=== PATIENT | male | born 1970 | race Two or more races ===

== ENCOUNTER 2022-06-25 17:01 | Inpatient (IN) | payer BC, OTHER ==
[~2022-06-25] VITALS: Ht 170.2 cm; Wt 154.4 kg
[2022-06-25] MEDS ORDERED: ASPirin 81 mg TAB PO ONE (17:45)
[2022-06-25 18:05] LABS: Basophils # (auto) 0 10 ^3/uL (0-0.2); Basophils % (auto) 0.6 % (0.0-2.0); Eosinophils # (auto) 0.1 10 ^3/uL (0-0.8); Eosinophils % (auto) 1.5 % (0.0-7.0); Hematocrit 45.7 % (41.0-53.0); Hemoglobin 16.3 g/dL (13.5-17.5); Lymphocytes # (auto) 2.4 10 ^3/uL (0.4-5.4); Lymphocytes % (auto) 26.9 % (10.0-50.0); Mean Corpuscular Hemoglobin 29.5 pg (28.0-32.0); Mean Corpuscular Hgb Conc. 35.6 g/dL (32.0-36.0); Mean Corpuscular Volume 82.8 fL (80.0-100.0); Monocytes # (auto) 0.7 10 ^3/uL (0-1.3); Monocytes % (auto) 7.9 % (0.0-12.0); Neutrophils # (auto) 5.6 10 ^3/uL (1.6-8.6); Neutrophils % (auto) 63.1 % (37.0-80.0); Nucleated Red Blood Cells % 0.2 %; Red Blood Cells 5.53 10^6/uL (4.5-5.90); Red Cell Distribution Width 13.7 % (11.8-14.3); White Blood Cell 8.8 10^3/uL (4.4-10.8)
[2022-06-25 18:19] LABS: INR 1.13 (0.9-1.15); Partial Thromboplastin Time 27.1 sec (24.6-33.4)
[2022-06-25 18:23] LABS: Albumin 4.2 g/dL (3.4-5.0); Magnesium 2.1 mg/dL (1.6-2.6); Potassium 3.8 mmol/L (3.5-5.1)
[2022-06-25 18:27] LABS: BUN/Creatinine Ratio 31.5; Bilirubin, Total 1.8 mg/dL (0.2-1.0); Total Protein 6.5 g/dL (6.4-8.2)
[2022-06-25] MEDS ORDERED: IOHEXOL 350 MG/ML 100ML IJ ONE (19:21)
[2022-06-25] MEDS ORDERED: TEMAZEPAM 15 MG CAP PO PRN (20:45)
[2022-06-25] MEDS ORDERED: MORPHINE SULFATE INJ 2 MG/ml SYRG IV PRN (20:45)
[2022-06-25] MEDS ORDERED: NITROGLYCERIN 0.4 MG SL TAB SL PRN (20:45)
[2022-06-25] MEDS ORDERED: ONDANSETRON HCL 4 MG/2 ML VIAL IV PRN (20:45)
[2022-06-25 22:07] LABS: BUN/Creatinine Ratio 29.6; Calcium 9.2 mg/dL (8.5-10.1)
[2022-06-25] MEDS ORDERED: FUROSEMIDE 20 MG TAB PO ONE (22:45)
[2022-06-25] MEDS: MONTELUKAST SODIUM 10 MG TAB PO SCH (23:12)
[2022-06-25] MEDS: ATORVASTATIN 20 MG TAB PO SCH (23:12)
[2022-06-26] VITALS (9 sets, daily range): BP systolic 100–148; BP diastolic 51–92
[2022-06-26] MEDS: PANTOPRAZOLE 40 MG TAB PO SCH (10:00)
[2022-06-26] MEDS ORDERED: ENOXAPARIN SOD 40 MG/0.4 ML SYRINGE SC SCH (10:00)
[2022-06-26] MEDS: LOSARTAN POTASSIUM 25 MG TAB PO SCH (10:00)
[2022-06-26] MEDS: ASPirin 81 mg TAB PO SCH (10:00)
[2022-06-26] MEDS: HCTZ 25 MG TAB PO SCH (10:00)
[2022-06-26] MEDS: ISOSORBIDE MONONITRATE ER 60 MG TAB PO SCH (10:00)
[2022-06-26] MEDS: FUROSEMIDE 20 MG TAB PO SCH (10:00)
[2022-06-26 11:12] LABS: Cholesterol 94 mg/dL (< 200); HDL Cholesterol 30 mg/dL (40-59); LDL Cholesterol 57 mg/dL (< 100); Triglycerides 143 mg/dL (< 150)
[2022-06-26] MEDS ORDERED: HEPARIN SODIUM (PORCINE) 5000 UNITS/ML 1ML VIAL ONE (14:17)
[2022-06-26] MEDS ORDERED: VERAPAMIL 2.5MG/ML INJ 2ML VIAL IV ONE (14:17)
[2022-06-26] MEDS ORDERED: ANGIOMAX 250 MG VIAL IV ONE (14:17)
[2022-06-26] MEDS ORDERED: fentaNYL CITRATE 100 MCG/2 ML VL ONE ×2 (14:17→14:39)
[2022-06-26] MEDS ORDERED: MIDAZOLAM HCL 2MG/2ML 2ml VIAL (1mg/ml) ONE ×2 (14:18→14:39)
[2022-06-26] MEDS ORDERED: SODIUM CHL 0.9% 0 ML ONE (14:18)
[2022-06-26] MEDS: ACETAMINOPHEN 325 MG TAB PO PRN (17:11)
[2022-06-26] MEDS: SODIUM CHLORIDE 0.9% 1,000 ML IV SCH (17:11)
[2022-06-26] MEDS: ATORVASTATIN 20 MG TAB PO SCH (21:56)
[2022-06-26] MEDS: MONTELUKAST SODIUM 10 MG TAB PO SCH (21:56)
[2022-06-27 03:12] VITALS: BP 123/67
[2022-06-27 05:00] VITALS: BP 109/72
[2022-06-27] MEDS: SODIUM CHLORIDE 0.9% 1,000 ML IV SCH ×2 (06:49→12:40)
[2022-06-27 08:23] VITALS: BP 123/67
[2022-06-27 09:00] VITALS: BP 105/63
[2022-06-27] MEDS: ASPirin 81 mg TAB PO SCH (09:17)
[2022-06-27] MEDS: FUROSEMIDE 20 MG TAB PO SCH (09:18)
[2022-06-27] MEDS: ACETAMINOPHEN 325 MG TAB PO PRN (09:18)
[2022-06-27] MEDS: PANTOPRAZOLE 40 MG TAB PO SCH (09:18)
[2022-06-27] MEDS: LOSARTAN POTASSIUM 25 MG TAB PO SCH (09:20)
[2022-06-27] MEDS: HCTZ 25 MG TAB PO SCH (09:21)
[2022-06-27] MEDS: ISOSORBIDE MONONITRATE ER 60 MG TAB PO SCH (09:21)
[2022-06-27] MEDS ORDERED: METOPROLOL SUCCINATE XL 50 MG TAB PO SCH (10:00)
[2022-06-27] MEDS ORDERED: AMIODARONE HCL 200 MG TAB PO SCH (10:00)
[2022-06-27] MEDS ORDERED: ATOR20TA50 PO (12:53)
[2022-06-27] MEDS ORDERED: AMIO200T33 PO (12:53)
[2022-06-27] MEDS ORDERED: METO25TA93 PO (12:53)
[2022-06-27] MEDS ORDERED: ASPI-325 PO (12:53)
[2022-06-27] MEDS ORDERED: MONT10TA23 PO (12:53)
[2022-06-27 13:00] VITALS: BP 108/53
[2022-06-27] MEDS ORDERED: MELA3TAB27 PO (13:24)
[2022-06-27 14:05] VITALS: BP 105/63
== END 2022-06-27 16:30 | disposition home or self-care (01) | DRG 287 ==
LOC: ER 17:01 → OVERFLOW 20:39 → TELE 06-26 10:01 → TELE-WESTW 06-26 16:09
PROVIDERS: ADMIT Nurse Practitioner; ATTEND Hospitalist
PROC: 4A023N7 Measurement of Cardiac Sampling and Pressure, Left Heart, Percutaneous Approach (ICD-10-PCS; principal; 2022-06-26)
PROC: B2111ZZ Fluoroscopy of Multiple Coronary Arteries using Low Osmolar Contrast (ICD-10-PCS; 2022-06-26)
PROC: B2151ZZ Fluoroscopy of Left Heart using Low Osmolar Contrast (ICD-10-PCS; 2022-06-26)
DX: I25.118 Atherosclerotic heart disease of native coronary artery with other forms of angina pectoris (principal); Z68.43 Body mass index [BMI] 50.0-59.9, adult; Z20.822 Contact with and (suspected) exposure to COVID-19; E66.01 Morbid (severe) obesity due to excess calories; E78.5 Hyperlipidemia, unspecified; I10 Essential (primary) hypertension; I48.0 Paroxysmal atrial fibrillation; R73.03 Prediabetes; J44.9 Chronic obstructive pulmonary disease, unspecified; Z82.49 Family history of ischemic heart disease and other diseases of the circulatory system
CPT/HCPCS: 36415; 71046; 71275; 80048; 80053; 80061; 83036; 83735; 83880; 84443; 84484; 85025; 85379; 85610; 85730; 87426; 93306; G0378; J2250